=== PATIENT | female | born 1980 | race Caucasian/White ===

== ENCOUNTER 2017-04-12 12:23 | Emergency (ER) | payer MEDICAID ==
[~2017-04-12] VITALS: Ht 157.5 cm; Wt 68.5 kg
[~2017-04-12 12:23] MED LIST: HYDR-3498 PO; IBUP-1542 PO
[2017-04-12 12:42] VITALS: Ht 157.5 cm; Wt 68.5 kg
[2017-04-12] MEDS ORDERED: ACETAMINOPHEN 325 MG TAB PO STA (14:15)
--- NOTE | 2017-04-12 15:15 | RADRPT ---
PROCEDURE: Obstetrical ultrasound CLINICAL INDICATION: left sided pelvic pain, 19 weeks preg TECHNIQUE: Multiple sonographic images of the pelvis were obtained. The images were reviewed on a PACS workstation. COMPARISON: None FINDINGS: The cervix is not well visualized. There is a single viable intrauterine gestation. Cardiac activity is present with 141 beats per minute. There is a vertex presentation. The placenta is posterior. There is no evidence for an abruption or placenta previa. There is a normal amount of amniotic fluid with a maximum vertical pocket of 5.6 cm. Measurements were made in order to determine age. The results are as follows (cm): BPD =4.61 HC =16.60 AC =14.96 FL =3.19 Estimated gestational age by ultrasound of approximately 19 weeks, 6 days. The estimated date of delivery by ultrasound is 08/31/2017. Estimated gestational age by LMP of approximately 19 weeks, 4 days. The estimated date of delivery by LMP is 09/02/2017. EFW = 326 grams (71st percentile) Bilateral ovaries are not visualized. There are no abnormal adnexal masses. IMPRESSION: Single viable intrauterine gestation of approximately 19 weeks, 6 days . The estimated date of delivery is 08/31/2017 . Dating by ultrasound is within 2 days of dating by LMP. Cephalic presentation. Normal no aortic fluid. Estimated weight is in the 71st percentile. Bilateral ovaries are not visualized. There are no abnormal adnexal masses. RPTAT: EE Physician Laci Date Time Electronically viewed and signed by Physician Laci on 04/12/2017 15:14 /
--- NOTE | 2017-04-12 16:18 | ERD ---
ER Documentation Chief Complaint Chief Complaint AP AND 19 WEEKS AND 4 DAYS HPI This is a 36-year-old female presenting to the emergency department for pelvic pain while . Patient states she is about 19 weeks with last menstrual period December 27, 2016. Patient is a A0. Patient denies vaginal bleeding or vaginal discharge. Denies dysuria or hematuria. No urinary frequency or urgency. Patient states she has pain to previous scar. No drainage, warmth or bleeding. ROS All systems reviewed and are negative except as per history of present illness. Medications Home Meds Active Scripts Ibuprofen* (Motrin*) 600 Mg Tab, 600 MG PO Q6, #30 TAB Prov:KARYNA HANEY PA-C 04/21/15 Ibuprofen* (Ibuprofen*) 600 Mg Tablet, 600 MG PO Q6 for PAIN, #30 TAB Prov:SIN HARE PA-C 03/11/15 Hydrocodone Bit-Acetaminophen* ([place]*) 5-325 Mg Tab, 1 TAB PO Q4H Y for PAIN, # 20 TAB Prov:SIN HARE PA-C 03/11/15 Allergies Allergies: Coded Allergies: No Known Allergy (Unverified , 10/22/13) PMhx/Soc Medical and Surgical Hx: pt denies Medical Hx History of Surgery: Yes (4 c-sections. ) Anesthesia Reaction: No Hx Neurological Disorder: No Hx Respiratory Disorders: No Hx Cardiac Disorders: No Hx Psychiatric Problems: No Hx Miscellaneous Medical Probl: No (npmh) Hx Alcohol Use: No Hx Substance Use: No Hx Tobacco Use: No Smoking Status: Never smoker Physical Exam Vitals Physical Exam Const: No acute distress, alert Head: Atraumatic Eyes: Normal Conjunctiva ENT: Normal External Ears, Nose and Mouth. Neck: Full range of motion..~ No meningismus. Resp: Clear to auscultation bilaterally Cardio: Regular rate and rhythm, no murmurs Abd: Soft, non tender, non distended. Normal bowel sounds Skin: No petechiae or rashes Back: No midline or flank tenderness no CVA tenderness. Ext: No cyanosis, or edema Neur: Awake and alert Psych: Normal Mood and Affect Results 24 hrs Laboratory Tests Test 04/12/17 14:28 04/12/17 14:39 White Blood Count 8.210^3/ul Red Blood Count 3.5410^6/ul Hemoglobin 11.0g/dl Hematocrit 33.8% Mean Corpuscular Volume 95.5fl Mean Corpuscular Hemoglobin 31.1pg Mean Corpuscular Hemoglobin Concent 32.5g/dl Red Cell Distribution Width 13.4% Platelet Count 79847^3/UL Mean Platelet Volume 10.0fl Neutrophils % 69.6% Lymphocytes % 21.4% Monocytes % 7.2% Eosinophils % 0.9% Basophils % 0.7% Nucleated Red Blood Cells % 0.0/100WBC Neutrophils # 5.710^3/ul Lymphocytes # 1.810^3/ul Monocytes # 0.610^3/ul Eosinophils # 0.110^3/ul Basophils # 0.110^3/ul Nucleated Red Blood Cells # 0.010^3/ul Beta HCG, Quantitative 56035.0mIU/ml Bedside Urine pH (LAB) 7.5 Bedside Urine Protein (LAB) Trace Bedside Urine Glucose (UA) Negative Bedside Urine Ketones (LAB) Negative Bedside Urine Blood Negative Bedside Urine Nitrite (LAB) Negative Bedside Urine Leukocyte Esterase (L Negative Current Medications Medications (Trade) Dose Ordered Sig/Dontae Route PRN Reason Start Time Stop Time Status Last Admin Dose Admin Acetaminophen (Tylenol Tab) 650 mg ONCE STAT PO 04/12/17 14:15 04/12/17 14:17 DC 04/12/17 14:48 Procedures/[place] [address] Radiology Main Line: [phone] DIAGNOSTIC IMAGING REPORT Patient: RAUL VIDALES : 1980 Age: 36 Sex: F MR #: [id number] DOS: 04/12/17 1415 Ordering MD: ALLISON GAMA NP Location: [facility] Room/Bed: PROCEDURE: Obstetrical ultrasound CLINICAL INDICATION: left sided pelvic pain, 19 weeks preg TECHNIQUE: Multiple sonographic images of the pelvis were obtained. The images were reviewed on a PACS workstation. COMPARISON: None FINDINGS: The cervix is not well visualized. There is a single viable intrauterine gestation. Cardiac activity is present with 141 beats per minute. There is a vertex presentation. The placenta is posterior. There is no evidence for an abruption or placenta previa. There is a normal amount of amniotic fluid with a maximum vertical pocket of 5.6 cm. Measurements were made in order to determine age. The results are as follows (cm): BPD = 4.61 HC = 16.60 AC = 14.96 FL = 3.19 Estimated gestational age by ultrasound of approximately 19 weeks, 6 days. The estimated date of delivery by ultrasound is 08/31/2017. Estimated gestational age by LMP of approximately 19 weeks, 4 days. The estimated date of delivery by LMP is 09/02/2017. EFW = 326 grams (71st percentile) Bilateral ovaries are not visualized. There are no abnormal adnexal masses. IMPRESSION: Ngle viable intrauterine gestation of approximately 19 weeks, 6 days . The estimated date of delivery is 08/31/2017 . Dating by ultrasound is within 2 days of dating by LMP. Cephalic presentation. Normal no aortic fluid. Estimated weight is in the 71st percentile. Bilateral ovaries are not visualized. There are no abnormal adnexal masses. MDM: 36 year old female presenting to ER for pelvic pain while . CBC shows no significant anemia or infection. Urine dip is [place] [address].0. Type and Rh factor is O positive. OB ultrasound reviewed by radiologist as Single viable intrauterine gestation of approximately 19 weeks, 6 days. Cephalic presentation. Normal no aortic fluid. Bilateral ovaries are not visualized. There are no abnormal adnexal masses. Differential diagnosis includes but not limited to ectopic , threatened , missed , normal , subchorionic hemorrhage , ruptured ovarian cyst, UTI or pyelonephritis. Patient is appropriate for outpatient management. Instructed patient to follow- up with F[facility] in the next 2-3 days or return to ED sooner for any high fever, chest pain, difficulty breathing, shortness breath, wheezing, vomiting, diarrhea , abdominal pain or any new or worsening symptoms. Patient verbalizes understanding. All questions answered at discharge. Macedonian translation used during this encounter. Disclaimer: Inadvertent spelling and grammatical errors are likely due to EHR/ dictation software use and do not reflect on the overall quality of patient care. Also, please note that the electronic time recorded on this note does not necessarily reflect the actual time of the patient encounter. Departure Diagnosis: Primary Impression: Pelvic pain affecting Trimester: second trimester Qualified Code: O26.892 - Pelvic pain affecting in second trimester, antepartum Condition: Stable Patient Instructions: Pelvic Pain In : Unclear (2-3 Trimester) [facility]errals: [facility] Usted se gustafson hecho un examen mdico de control que le indica que no est en gorge condicin que requiera tratamiento urgente en el Departamento de Emergencia. Un estudio ms profundo y el tratamiento de duran condicin pueden esperar sin ningn riesgo hasta que usted sea atendida/o en el consultorio de duran mdico o gorge cl ricky. Es responsabilidad suya arreglar gorge sy para el seguimiento del michele. MANEJO DE CONDICIONES NO URGENTES EN EL FUTURO 1) Si usted tiene un mdico de atencin primaria: Usted debera llamar a duran mdico de atencin primaria antes de venir al departamento de emergencia. Despus de las horas de consultorio, duran doctor o duran asociado/a est disponible por telfono. El mdico o enfermero de juliette en el servicio telefnico puede asesorarle por sabina medio para atender el problema, o michele contrario se puede programar gorge sy. 2) Si usted no tiene un mdico de atencin primaria: Llame al mdico o clnica de referencia que aparece abajo jordi las horas de consultorio para hacer gorge sy para que le vean. CLINICAS: [facility] [phone] [facility]., [facility] [phone] [facility] [phone] [address] [facility]. [facility] [phone] [facility] [phone] 6801 [facility]. [phone] [address] . [facility] () Usted se gustafson hecho un examen mdico de control que le indica que no est en gorge condicin que requiera tratamiento urgente en el Departamento de Emergencia. Un estudio ms profundo y el tratamiento de duran condicin pueden esperar sin ningn riesgo hasta que usted sea atendida/o en el consultorio de duran mdico o gorge cl ricky. Es responsabilidad suya arreglar gorge sy para el seguimiento del michele. MANEJO DE CONDICIONES NO URGENTES EN EL FUTURO 1) Si usted tiene un mdico de atencin primaria: Usted debera llamar a duran mdico de atencin primaria antes de venir al departamento de emergencia. Despus de las horas de consultorio, duran doctor o duran asociado/a est disponible por telfono. El mdico o enfermero de juliette en el servicio telefnico puede asesorarle por sabina medio para atender el problema, o michele contrario se puede programar gorge sy. 2) Si usted no tiene un mdico de atencin primaria: Llame al mdico o condado institucions de referencia que aparece abajo jordi las horas de consultorio para hacer gorge sy para que le vean. SI USTED NO PUEDE PAGAR PARA ALY UN MEDICO puede ir a: [facility] [address] [place] [address] [facility] [address] [place] [address] [facility] [address] [place] [address] [address] [facility] [address] [place] [address] [facility] [place] [address] [facility] [address] [place] [address] OFFICE FAX NETTA FOSTER [address] [place] [address] ESPINO, WAY[place] [address] [facility] [place] [address] DR VALENCIA, [facility] [address] [facility], [address], [place] [address] DR DAMICO, [facility] [address] [place] [address] [facility] [address] [place] [address] [phone] [facility], [facility] [address] - DR CARBONE, ANDRADE [address], [place] [address] DR RUBIO, CHANELLE [address] [facility]. [address], [place] [address] DR CODY, [facility] [address] [place], [place] [id number] Additional Instructions: Llame al doctor MAANA y derrell gorge SY PARA DENTRO DE 2-3 SNELL.Dgale a la secretaria que nosotros le instruimos hacer esta sy.Avise o llame si duran condicin se empeora antes de la sy. Regresa aqui si peor o no mejor. Vuelva a Ed para cualquier fiebre kelsea, dolor en el pecho, dificultad para respirar, respiracin entrecortada, sibilancias, vmitos, diarrea, dolor abdominal o cualquier sntoma nuevo o empeoramiento. ALLISON HUNT NP Apr 12, 2017 16:18 Vuelva a Ed para cualquier fiebre kelsea, dolor en el pecho, dificultad para respirar, respiracin entrecortada, sibilancias, vmitos, diarrea, dolor abdominal o cualquier sntoma nuevo o empeoramiento. ALLISON HUNT NP Apr 12, 2017 16:18
--- NOTE | 2017-04-12 16:18 | ERD ---
ER Documentation Chief Complaint Chief Complaint AP AND 19 WEEKS AND 4 DAYS HPI This is a 36-year-old female presenting to the emergency department for pelvic pain while . Patient states she is about 19 weeks with last menstrual period December 27, 2016. Patient is a A0. Patient denies vaginal bleeding or vaginal discharge. Denies dysuria or hematuria. No urinary frequency or urgency. Patient states she has pain to previous scar. No drainage, warmth or bleeding. ROS All systems reviewed and are negative except as per history of present illness. Medications Home Meds Active Scripts Ibuprofen* (Motrin*) 600 Mg Tab, 600 MG PO Q6, #30 TAB Prov:KARYNA HANEY PA-C 04/21/15 Ibuprofen* (Ibuprofen*) 600 Mg Tablet, 600 MG PO Q6 for PAIN, #30 TAB Prov:SIN HARE PA-C 03/11/15 Hydrocodone Bit-Acetaminophen* ([place]*) 5-325 Mg Tab, 1 TAB PO Q4H Y for PAIN, # 20 TAB Prov:SIN HARE PA-C 03/11/15 Allergies Allergies: Coded Allergies: No Known Allergy (Unverified , 10/22/13) PMhx/Soc Medical and Surgical Hx: pt denies Medical Hx History of Surgery: Yes (4 c-sections. ) Anesthesia Reaction: No Hx Neurological Disorder: No Hx Respiratory Disorders: No Hx Cardiac Disorders: No Hx Psychiatric Problems: No Hx Miscellaneous Medical Probl: No (npmh) Hx Alcohol Use: No Hx Substance Use: No Hx Tobacco Use: No Smoking Status: Never smoker Physical Exam Vitals Physical Exam Const: No acute distress, alert Head: Atraumatic Eyes: Normal Conjunctiva ENT: Normal External Ears, Nose and Mouth. Neck: Full range of motion..~ No meningismus. Resp: Clear to auscultation bilaterally Cardio: Regular rate and rhythm, no murmurs Abd: Soft, non tender, non distended. Normal bowel sounds Skin: No petechiae or rashes Back: No midline or flank tenderness no CVA tenderness. Ext: No cyanosis, or edema Neur: Awake and alert Psych: Normal Mood and Affect Results 24 hrs Laboratory Tests Test 04/12/17 14:28 04/12/17 14:39 White Blood Count 8.210^3/ul Red Blood Count 3.5410^6/ul Hemoglobin 11.0g/dl Hematocrit 33.8% Mean Corpuscular Volume 95.5fl Mean Corpuscular Hemoglobin 31.1pg Mean Corpuscular Hemoglobin Concent 32.5g/dl Red Cell Distribution Width 13.4% Platelet Count 36614^3/UL Mean Platelet Volume 10.0fl Neutrophils % 69.6% Lymphocytes % 21.4% Monocytes % 7.2% Eosinophils % 0.9% Basophils % 0.7% Nucleated Red Blood Cells % 0.0/100WBC Neutrophils # 5.710^3/ul Lymphocytes # 1.810^3/ul Monocytes # 0.610^3/ul Eosinophils # 0.110^3/ul Basophils # 0.110^3/ul Nucleated Red Blood Cells # 0.010^3/ul Beta HCG, Quantitative 60956.0mIU/ml Bedside Urine pH (LAB) 7.5 Bedside Urine Protein (LAB) Trace Bedside Urine Glucose (UA) Negative Bedside Urine Ketones (LAB) Negative Bedside Urine Blood Negative Bedside Urine Nitrite (LAB) Negative Bedside Urine Leukocyte Esterase (L Negative Current Medications Medications (Trade) Dose Ordered Sig/Dontae Route PRN Reason Start Time Stop Time Status Last Admin Dose Admin Acetaminophen (Tylenol Tab) 650 mg ONCE STAT PO 04/12/17 14:15 04/12/17 14:17 DC 04/12/17 14:48 Procedures/[place] [address] Radiology Main Line: [phone] DIAGNOSTIC IMAGING REPORT Patient: RAUL VIDALES : 1980 Age: 36 Sex: F MR #: [id number] DOS: 04/12/17 1415 Ordering MD: ALLISON GAMA NP Location: [facility] Room/Bed: PROCEDURE: Obstetrical ultrasound CLINICAL INDICATION: left sided pelvic pain, 19 weeks preg TECHNIQUE: Multiple sonographic images of the pelvis were obtained. The images were reviewed on a PACS workstation. COMPARISON: None FINDINGS: The cervix is not well visualized. There is a single viable intrauterine gestation. Cardiac activity is present with 141 beats per minute. There is a vertex presentation. The placenta is posterior. There is no evidence for an abruption or placenta previa. There is a normal amount of amniotic fluid with a maximum vertical pocket of 5.6 cm. Measurements were made in order to determine age. The results are as follows (cm): BPD = 4.61 HC = 16.60 AC = 14.96 FL = 3.19 Estimated gestational age by ultrasound of approximately 19 weeks, 6 days. The estimated date of delivery by ultrasound is 08/31/2017. Estimated gestational age by LMP of approximately 19 weeks, 4 days. The estimated date of delivery by LMP is 09/02/2017. EFW = 326 grams (71st percentile) Bilateral ovaries are not visualized. There are no abnormal adnexal masses. IMPRESSION: Ngle viable intrauterine gestation of approximately 19 weeks, 6 days . The estimated date of delivery is 08/31/2017 . Dating by ultrasound is within 2 days of dating by LMP. Cephalic presentation. Normal no aortic fluid. Estimated weight is in the 71st percentile. Bilateral ovaries are not visualized. There are no abnormal adnexal masses. MDM: 36 year old female presenting to ER for pelvic pain while . CBC shows no significant anemia or infection. Urine dip is negative [place] [address].0. Type and Rh factor is O positive. OB ultrasound reviewed by radiologist as Single viable intrauterine gestation of approximately 19 weeks, 6 days. Cephalic presentation. Normal no aortic fluid. Bilateral ovaries are not visualized. There are no abnormal adnexal masses. Differential diagnosis includes but not limited to ectopic , threatened , missed , normal , subchorionic hemorrhage , ruptured ovarian cyst, UTI or pyelonephritis. Patient is appropriate for outpatient management. Instructed patient to follow- up with [facility] OPERATOR in the next 2-3 days or return to ED sooner for any high fever, chest pain, difficulty breathing, shortness breath, wheezing, vomiting, diarrhea , abdominal pain or any new or worsening symptoms. Patient verbalizes understanding. All questions answered at discharge. Vincentian translation used during this encounter. Disclaimer: Inadvertent spelling and grammatical errors are likely due to EHR/ dictation software use and do not reflect on the overall quality of patient care. Also, please note that the electronic time recorded on this note does not necessarily reflect the actual time of the patient encounter. Departure Diagnosis: Primary Impression: Pelvic pain affecting Trimester: second trimester Qualified Code: O26.892 - Pelvic pain affecting in second trimester, antepartum Condition: Stable Patient Instructions: Pelvic Pain In : Unclear (2-3 Trimester) Referrals: [facility] Usted se gustafson hecho un examen mdico de control que le indica que no est en gorge condicin que requiera tratamiento urgente en el Departamento de Emergencia. Un estudio ms profundo y el tratamiento de duran condicin pueden esperar sin ningn riesgo hasta que usted sea atendida/o en el consultorio de duran mdico o gorge cl ricky. Es responsabilidad suya arreglar gorge sy para el seguimiento del michele. MANEJO DE CONDICIONES NO URGENTES EN EL FUTURO 1) Si usted tiene un mdico de atencin primaria: Usted debera llamar a duran mdico de atencin primaria antes de venir al departamento de emergencia. Despus de las horas de consultorio, duran doctor o duran asociado/a est disponible por telfono. El mdico o enfermero de juliette en el servicio telefnico puede asesorarle por sabina medio para atender el problema, o michele contrario se puede programar gorge sy. 2) Si usted no tiene un mdico de atencin primaria: Llame al mdico o clnica de referencia que aparece abajo jordi las horas de consultorio para hacer gorge sy para que le vean. CLINICAS: [facility] [phone] 7138 [facility]., [facility] [phone] [facility] [phone] [address] [facility]. [facility] [phone] [facility] [phone] 6801 [facility]. [phone] [address] . [facility] () Usted se gustafson hecho un examen mdico de control que le indica que no est en gorge condicin que requiera tratamiento urgente en el Departamento de Emergencia. Un estudio ms profundo y el tratamiento de duran condicin pueden esperar sin ningn riesgo hasta que usted sea atendida/o en el consultorio de duran mdico o gorge cl ricky. Es responsabilidad suya arreglar gorge sy para el seguimiento del michele. MANEJO DE CONDICIONES NO URGENTES EN EL FUTURO 1) Si usted tiene un mdico de atencin primaria: Usted debera llamar a duran mdico de atencin primaria antes de venir al departamento de emergencia. Despus de las horas de consultorio, duran doctor o duran asociado/a est disponible por telfono. El mdico o enfermero de juliette en el servicio telefnico puede asesorarle por sabina medio para atender el problema, o michele contrario se puede programar gorge sy. 2) Si usted no tiene un mdico de atencin primaria: Llame al mdico o condado institucions de referencia que aparece abajo jordi las horas de consultorio para hacer gorge sy para que le vean. SI USTED NO PUEDE PAGAR PARA ALY UN MEDICO puede ir a: [facility] [address] [place] [address] [facility] [address] [place] [address] [facility] [address] [place] [address] [address] [facility] [address] [place] [address] DRAGLINE OPERATOR [place] [address] [facility] [address] [place] [address] OFFICE FAX NETTA FOSTER [address] [place] [address] ESPINO, WAYNE [address] [facility] [place] [address] DR VALENCIA, [facility] [address] [facility], [address] [address] [address] DAMICO, [facility] [address] [place] [address] [facility] [place] [address] [place] [address] [phone] 3766 [facility], [place] [address] - DR CARBONE, ANDRADE [address], [place] [address] DR RUBIO, CHANELLE [address] [facility]. [address], [place] [address] DR CODY, [facility] [address] [place], [place] [id number] Additional Instructions: Llame al doctor MAANA y derrell gorge SY PARA DENTRO DE 2-3 SNELL.Dgale a la secretaria que nosotros le instruimos hacer esta sy.Avise o llame si duran condicin se empeora antes de la sy. Regresa aqui si peor o no mejor. Vuelva a Ed para cualquier fiebre kelsea, dolor en el pecho, dificultad para respirar, respiracin entrecortada, sibilancias, vmitos, diarrea, dolor abdominal o cualquier sntoma nuevo o empeoramiento. ALLISON HUNT NP Apr 12, 2017 16:18 Vuelva a Ed para cualquier fiebre kelsea, dolor en el pecho, dificultad para respirar, respiracin entrecortada, sibilancias, vmitos, diarrea, dolor abdominal o cualquier sntoma nuevo o empeoramiento. ALLISON HUNT NP Apr 12, 2017 16:18
--- NOTE | 2017-04-12 16:18 | ERD ---
ER Documentation Chief Complaint Chief Complaint AP AND 19 WEEKS AND 4 DAYS HPI This is a 36-year-old female presenting to the emergency department for pelvic pain while . Patient states she is about 19 weeks with last menstrual period December 27, 2016. Patient is a A0. Patient denies vaginal bleeding or vaginal discharge. Denies dysuria or hematuria. No urinary frequency or urgency. Patient states she has pain to previous scar. No drainage, warmth or bleeding. ROS All systems reviewed and are negative except as per history of present illness. Medications Home Meds Active Scripts Ibuprofen* (Motrin*) 600 Mg Tab, 600 MG PO Q6, #30 TAB Prov:KARYNA HANEY PA-C 04/21/15 Ibuprofen* (Ibuprofen*) 600 Mg Tablet, 600 MG PO Q6 for PAIN, #30 TAB Prov:SIN HARE PA-C 03/11/15 Hydrocodone Bit-Acetaminophen* (Veguita*) 5-325 Mg Tab, 1 TAB PO Q4H Y for PAIN, # 20 TAB Prov:ISN HARE PA-C 03/11/15 Allergies Allergies: Coded Allergies: No Known Allergy (Unverified , 10/22/13) PMhx/Soc Medical and Surgical Hx: pt denies Medical Hx History of Surgery: Yes (4 c-sections. ) Anesthesia Reaction: No Hx Neurological Disorder: No Hx Respiratory Disorders: No Hx Cardiac Disorders: No Hx Psychiatric Problems: No Hx Miscellaneous Medical Probl: No (npmh) Hx Alcohol Use: No Hx Substance Use: No Hx Tobacco Use: No Smoking Status: Never smoker Physical Exam Vitals Physical Exam Const: No acute distress, alert Head: Atraumatic Eyes: Normal Conjunctiva ENT: Normal External Ears, Nose and Mouth. Neck: Full range of motion..~ No meningismus. Resp: Clear to auscultation bilaterally Cardio: Regular rate and rhythm, no murmurs Abd: Soft, non tender, non distended. Normal bowel sounds Skin: No petechiae or rashes Back: No midline or flank tenderness no CVA tenderness. Ext: No cyanosis, or edema Neur: Awake and alert Psych: Normal Mood and Affect Results 24 hrs Laboratory Tests Test 04/12/17 14:28 04/12/17 14:39 White Blood Count 8.210^3/ul Red Blood Count 3.5410^6/ul Hemoglobin 11.0g/dl Hematocrit 33.8% Mean Corpuscular Volume 95.5fl Mean Corpuscular Hemoglobin 31.1pg Mean Corpuscular Hemoglobin Concent 32.5g/dl Red Cell Distribution Width 13.4% Platelet Count 58364^3/UL Mean Platelet Volume 10.0fl Neutrophils % 69.6% Lymphocytes % 21.4% Monocytes % 7.2% Eosinophils % 0.9% Basophils % 0.7% Nucleated Red Blood Cells % 0.0/100WBC Neutrophils # 5.710^3/ul Lymphocytes # 1.810^3/ul Monocytes # 0.610^3/ul Eosinophils # 0.110^3/ul Basophils # 0.110^3/ul Nucleated Red Blood Cells # 0.010^3/ul Beta HCG, Quantitative 88256.0mIU/ml Bedside Urine pH (LAB) 7.5 Bedside Urine Protein (LAB) Trace Bedside Urine Glucose (UA) Negative Bedside Urine Ketones (LAB) Negative Bedside Urine Blood Negative Bedside Urine Nitrite (LAB) Negative Bedside Urine Leukocyte Esterase (L Negative Current Medications Medications (Trade) Dose Ordered Sig/Dontae Route PRN Reason Start Time Stop Time Status Last Admin Dose Admin Acetaminophen (Tylenol Tab) 650 mg ONCE STAT PO 04/12/17 14:15 04/12/17 14:17 DC 04/12/17 14:48 Procedures/[place] [address] Radiology Main Line: [phone] DIAGNOSTIC IMAGING REPORT Patient: RAUL VIDALES : 1980 Age: 36 Sex: F MR #: [id number] DOS: 04/12/17 1415 Ordering MD: ALLISON GAMA NP Location: [facility] Room/Bed: PROCEDURE: Obstetrical ultrasound CLINICAL INDICATION: left sided pelvic pain, 19 weeks preg TECHNIQUE: Multiple sonographic images of the pelvis were obtained. The images were reviewed on a PACS workstation. COMPARISON: None FINDINGS: The cervix is not well visualized. There is a single viable intrauterine gestation. Cardiac activity is present with 141 beats per minute. There is a vertex presentation. The placenta is posterior. There is no evidence for an abruption or placenta previa. There is a normal amount of amniotic fluid with a maximum vertical pocket of 5.6 cm. Measurements were made in order to determine age. The results are as follows (cm): BPD = 4.61 HC = 16.60 AC = 14.96 FL = 3.19 Estimated gestational age by ultrasound of approximately 19 weeks, 6 days. The estimated date of delivery by ultrasound is 08/31/2017. Estimated gestational age by LMP of approximately 19 weeks, 4 days. The estimated date of delivery by LMP is 09/02/2017. EFW = 326 grams (71st percentile) Bilateral ovaries are not visualized. There are no abnormal adnexal masses. IMPRESSION: Ngle viable intrauterine gestation of approximately 19 weeks, 6 days . The estimated date of delivery is 08/31/2017 . Dating by ultrasound is within 2 days of dating by LMP. Cephalic presentation. Normal no aortic fluid. Estimated weight is in the 71st percentile. Bilateral ovaries are not visualized. There are no abnormal adnexal masses. MDM: 36 year old female presenting to ER for pelvic pain while . CBC shows no significant anemia or infection. Urine dip is [place] [address].0. Type and Rh factor is O positive. OB ultrasound reviewed by radiologist as Single viable intrauterine gestation of approximately 19 weeks, 6 days. Cephalic presentation. Normal no aortic fluid. Bilateral ovaries are not visualized. There are no abnormal adnexal masses. Differential diagnosis includes but not limited to ectopic , threatened , missed , normal , subchorionic hemorrhage , ruptured ovarian cyst, UTI or pyelonephritis. Patient is appropriate for outpatient management. Instructed patient to follow- up with [facility]TENANCE ANALYST in the next 2-3 days or return to ED sooner for any high fever, chest pain, difficulty breathing, shortness breath, wheezing, vomiting, diarrhea , abdominal pain or any new or worsening symptoms. Patient verbalizes understanding. All questions answered at discharge. Grenadian translation used during this encounter. Disclaimer: Inadvertent spelling and grammatical errors are likely due to EHR/ dictation software use and do not reflect on the overall quality of patient care. Also, please note that the electronic time recorded on this note does not necessarily reflect the actual time of the patient encounter. Departure Diagnosis: Primary Impression: Pelvic pain affecting Trimester: second trimester Qualified Code: O26.892 - Pelvic pain affecting in second trimester, antepartum Condition: Stable Patient Instructions: Pelvic Pain In : Unclear (2-3 Trimester) [facility] Usted se gustafson hecho un examen mdico de control que le indica que no est en gorge condicin que requiera tratamiento urgente en el Departamento de Emergencia. Un estudio ms profundo y el tratamiento de duran condicin pueden esperar sin ningn riesgo hasta que usted sea atendida/o en el consultorio de duran mdico o gorge cl ricky. Es responsabilidad suya arreglar gorge sy para el seguimiento del michele. MANEJO DE CONDICIONES NO URGENTES EN EL FUTURO 1) Si usted tiene un mdico de atencin primaria: Usted debera llamar a duran mdico de atencin primaria antes de venir al departamento de emergencia. Despus de las horas de consultorio, duran doctor o duran asociado/a est disponible por telfono. El mdico o enfermero de juliette en el servicio telefnico puede asesorarle por sabina medio para atender el problema, o michele contrario se puede programar gorge sy. 2) Si usted no tiene un mdico de atencin primaria: Llame al mdico o clnica de referencia que aparece abajo jordi las horas de consultorio para hacer gorge sy para que le vean. CLINICAS: [facility] [phone] [facility] [phone] [facility] [phone] [address] [facility]. [facility] [phone] [facility] [phone] [address] [facility]. [phone] [address] . [facility] () Usted se gustafson hecho un examen mdico de control que le indica que no est en gorge condicin que requiera tratamiento urgente en el Departamento de Emergencia. Un estudio ms profundo y el tratamiento de duran condicin pueden esperar sin ningn riesgo hasta que usted sea atendida/o en el consultorio de duran mdico o gorge cl ricky. Es responsabilidad suya arreglar gorge sy para el seguimiento del michele. MANEJO DE CONDICIONES NO URGENTES EN EL FUTURO 1) Si usted tiene un mdico de atencin primaria: Usted debera llamar a duran mdico de atencin primaria antes de venir al departamento de emergencia. Despus de las horas de consultorio, duran doctor o duran asociado/a est disponible por telfono. El mdico o enfermero de juliette en el servicio telefnico puede asesorarle por sabina medio para atender el problema, o michele contrario se puede programar gorge sy. 2) Si usted no tiene un mdico de atencin primaria: Llame al mdico o condado institucions de referencia que aparece abajo jordi las horas de consultorio para hacer gorge sy para que le vean. SI USTED NO PUEDE PAGAR PARA ALY UN MEDICO puede ir a: [facility] [address] [place] [address] [facility] [address] [place] [address] [facility] [address] [place] [address] [facility] [address] [place] [address] [facility] [place] [address] [facility] [address] [place] [address] OFFICE FAX NETTA FOSTER [address] [place] [address] ESPINO, [place] [address] [facility] [place] [address] DR VALENCIA, [facility] [address] [address] [facility], [address], [place] [address] DR DAMICO, [facility] [address] [place] [address] [facility] [place] [address] [place] [address] [phone] [facility], [facility] [address] - [address] CARBONE, ANDRADE [address], [place] [address] DR RUBIO, CHANELLE [address] [facility]. [address], [place] [address] DR CODY, [facility] [address] [place], [place] [id number] Additional Instructions: Llame al doctor MAANA y derrell gorge SY PARA DENTRO DE 2-3 SNELL.Dgale a la secretaria que nosotros le instruimos hacer esta sy.Avise o llame si duran condicin se empeora antes de la sy. Regresa aqui si peor o no mejor. Vuelva a Ed para cualquier fiebre kelsea, dolor en el pecho, dificultad para respirar, respiracin entrecortada, sibilancias, vmitos, diarrea, dolor abdominal o cualquier sntoma nuevo o empeoramiento. ALLISON HUNT NP Apr 12, 2017 16:18 Vuelva a Ed para cualquier fiebre kelsea, dolor en el pecho, dificultad para respirar, respiracin entrecortada, sibilancias, vmitos, diarrea, dolor abdominal o cualquier sntoma nuevo o empeoramiento. ALLISON HUNT NP Apr 12, 2017 16:18
== END 2017-04-12 16:15 | disposition home or self-care (01) ==
LOC: FTE 12:23
DX: O26.892 Other specified pregnancy related conditions, second trimester (principal); R10.2 Pelvic and perineal pain; Z3A.19 19 weeks gestation of pregnancy
CPT/HCPCS: 36415; 76805; 81003; 84702; 85025; 86900; 86901; Z7502; Z7610

== ENCOUNTER 2019-03-03 12:37 | Emergency (ER) | payer MEDICAID ==
[~2019-03-03] VITALS: Ht 154.9 cm; Wt 70.1 kg
[~2019-03-03 12:37] MED LIST changes: +CETI10CA PO; +HC30CR25 TOP; +PRED20TA PO
[2019-03-03 12:41] VITALS: PULSE 72; RESP 18; Ht 154.9 cm; Wt 70.1 kg
== END 2019-03-03 13:36 | disposition home or self-care (01) ==
LOC: E/R 12:37
DX: R21 Rash and other nonspecific skin eruption (principal)
CPT/HCPCS: 99283